=== PATIENT | female | born 1970 | race Caucasian/White ===

== ENCOUNTER 2017-08-22 08:48 | Outpatient (CLI) | payer BC ==
--- NOTE | 2017-08-22 10:15 | MRI ---
MRI OF LEFT FOOT PERFORMED WITHOUT CONTRAST ENHANCEMENT: HISTORY: The patient fell last year and has had persistent pain. FINDINGS: The marrow signal change within the metatarsals and phalanges is normal. There is an area of edema which is mainly confined to the superficial soft tissues along the plantar surface of the 2nd metatarsal head and metatarsal phalangeal joint. This is not in the typical locat ion for Casanova's neuroma. It probably represents a nonspecific induration of the tissue. I do not s ee a foreign body. There is no fluid collection or other abnormalities. IMPRESSION: Nonspecific induration to the soft tissues along the plantar aspect of the 2nd metatarsal phalangeal joint. This is more superficial in location than typically seen for a Casanova's neuroma. POS: DOT
== END 2017-08-22 08:49 | disposition home or self-care (01) ==
LOC: MRI 08:48
PROVIDERS: ATTEND Physician Assistant
DX: M79.672 Pain in left foot (principal)